=== PATIENT | female | born 1970 | race Caucasian/White ===

== ENCOUNTER 2020-07-07 20:24 | Inpatient (IN) | payer OTHER ==
[~2020-07-07] VITALS: Ht 157.5 cm; Wt 90.7 kg
[2020-07-07 21:02] LABS: BASOPHIL % 0.8 % (0-2); PLATELET COUNT 270 x10^3mcL (130-400)
[2020-07-07 21:13] LABS: RED CELL DISTRIBUTION WIDTH 17.6 % (11.5-14.5)
[2020-07-07 21:17] LABS: CALCIUM 8.5 mg/dL (8.5-10.1); CARBON DIOXIDE 28.8 mmol/L (21-32); CHLORIDE SERUM 99 mmol/L (98-107); CREATININE SERUM 1.2 mg/dL (0.6-1.0); GFR1 51 mL/min; GLUCOSE SERUM 136 mg/dL (74-106); POTASSIUM SERUM 3.7 mmol/L (3.5-5.1); SODIUM SERUM 136 mmol/L (136-145)
[2020-07-07 21:21] LABS: ALKALINE PHOSPHATASE 237 U/L (46-116); ALT/SGPT 35 U/L (14-59); AST/SGOT 40 U/L (15-37); BILIRUBIN TOTAL 1.9 mg/dL (0.20-1.00); LIPASE 126 IU/L (73-393)
[2020-07-07 21:22] LABS: ALBUMIN 3.2 g/dL (3.4-5.0); TOTAL PROTEIN, SERUM 9.1 g/dL (6.4-8.2)
[2020-07-07 22:15] LABS: AMPHETAMINE QUAL UR POSITIVE (See below)
[2020-07-08] VITALS (8 sets, daily range): BP systolic 144–192; BP diastolic 92–111; Ht 157.5 cm; Wt 90.7 kg
[2020-07-08 00:56] LABS: PHOSPHOROUS 3.3 mg/dL (2.5-4.9)
[2020-07-08 01:02] LABS: T3 TOTAL 1.06 ng/mL
[2020-07-08 01:14] LABS: FREE T4 1.51 ng/dL (0.76-1.46); FREE THYROXINE INDEX 2.8 ug/dL (1.4-4.5); T4(THYROXINE) 7.9 ug/dL (4.7-13.3)
[2020-07-08 01:41] LABS: CHOLESTEROL/HDL RATIO 7.1
[2020-07-08 10:27] LABS: UA SPECIFIC GRAVITY 1.015 (1.005-1.035); microscopic required? YES; urine erythrocyte NEGATIVE (NEGATIVE)
[2020-07-09 06:13] VITALS: BP 136/83
[2020-07-09 07:40] LABS: BASOPHIL % 0.5 % (0-2); PLATELET COUNT 275 x10^3mcL (130-400)
[2020-07-09 07:54] LABS: RED CELL DISTRIBUTION WIDTH 17.5 % (11.5-14.5)
[2020-07-09 08:00] VITALS: BP 128/77
[2020-07-09 08:09] LABS: ALKALINE PHOSPHATASE 211 U/L (46-116); ALT/SGPT 31 U/L (14-59); AST/SGOT 37 U/L (15-37); BILIRUBIN TOTAL 1.2 mg/dL (0.20-1.00); CALCIUM 8.5 mg/dL (8.5-10.1); CARBON DIOXIDE 29.6 mmol/L (21-32); CHLORIDE SERUM 99 mmol/L (98-107); GFR1 > 60 mL/min; GLUCOSE SERUM 101 mg/dL (74-106); POTASSIUM SERUM 3.5 mmol/L (3.5-5.1); SODIUM SERUM 135 mmol/L (136-145)
[2020-07-09 08:13] LABS: ALBUMIN 2.6 g/dL (3.4-5.0)
[2020-07-09 12:00] VITALS: BP 115/81
[2020-07-09 21:35] VITALS: BP 114/70
[2020-07-10 04:59] VITALS: BP 127/73
[2020-07-10 07:01] LABS: BILIRUBIN TOTAL 1.2 mg/dL (0.20-1.00); CALCIUM 8.6 mg/dL (8.5-10.1); CARBON DIOXIDE 29.5 mmol/L (21-32); CREATININE SERUM 1.2 mg/dL (0.6-1.0); POTASSIUM SERUM 3.6 mmol/L (3.5-5.1); TOTAL PROTEIN, SERUM 7.9 g/dL (6.4-8.2)
[2020-07-10 07:04] LABS: ALBUMIN 2.6 g/dL (3.4-5.0)
[2020-07-10 07:15] VITALS: BP 124/75
[2020-07-10 07:30] LABS: BASOPHIL % 0.3 % (0-2); PLATELET COUNT 282 x10^3mcL (130-400)
[2020-07-10 08:22] LABS: RED CELL DISTRIBUTION WIDTH 17.5 % (11.5-14.5)
[2020-07-10] MEDS ORDERED: KEFLEX500 M1 PO (12:59)
[2020-07-10] MEDS ORDERED: NOR10 PO (13:00)
[2020-07-10] MEDS ORDERED: CARVEDILOL12.5 M1 PO (13:00)
[2020-07-10] MEDS ORDERED: ZES10 PO (13:00)
[2020-07-10] MEDS ORDERED: LAC15L PO (13:01)
[2020-07-10] MEDS ORDERED: LASIX40 MG PO (13:01)
[2020-07-10] MEDS ORDERED: MAG PO (13:01)
[2020-07-10] MEDS ORDERED: KLOR-CON 1010 MEQ PO (13:03)
[2020-07-10 13:07] VITALS: BP 126/87
[2020-07-10] MEDS ORDERED: LEV250 PO (14:06)
== END 2020-07-10 15:13 | disposition home or self-care (01) | DRG 194 ==
LOC: ED 20:24 → DU 22:29
PROVIDERS: Emergency Medicine; ADMIT Internal Medicine; ATTEND Internal Medicine
DX: I11.0 Hypertensive heart disease with heart failure (principal); E44.0 Moderate protein-calorie malnutrition; I42.7 Cardiomyopathy due to drug and external agent; E11.65 Type 2 diabetes mellitus with hyperglycemia; L03.115 Cellulitis of right lower limb; F17.210 Nicotine dependence, cigarettes, uncomplicated; I50.41 Acute combined systolic (congestive) and diastolic (congestive) heart failure; E80.6 Other disorders of bilirubin metabolism; E66.9 Obesity, unspecified; E87.70 Fluid overload, unspecified; I16.0 Hypertensive urgency; E03.9 Hypothyroidism, unspecified; N39.0 Urinary tract infection, site not specified; F15.90 Other stimulant use, unspecified, uncomplicated; Z79.899 Other long term (current) drug therapy; Z82.49 Family history of ischemic heart disease and other diseases of the circulatory system; Z88.8 Allergy status to other drugs, medicaments and biological substances
CPT/HCPCS: 82962; 83880; 84439; 99406; G0378; J0690; J1644; J1650; J1940; J3490; J7030; J7050; Q0092; U0003-CS